=== PATIENT | female | born 1965 | race Caucasian/White ===

== ENCOUNTER → 2021-11-11 07:59 | Outpatient (CLI) | payer OTHER, MEDICAID, SELFPAY ==
--- NOTE | 2021-11-11 08:01 | DI.RAD.S_ITS ---
PROCEDURE: XR FOOT RT MIN 3V INDICATIONS: fall TECHNIQUE: 3 views of the foot were acquired. COMPARISON: [facility], , FOOT 3V RIGHT, 01/08/2016, 10:16. FINDINGS: Bones: No acute fractures or dislocations. No suspicious bony lesions. Moderate to severe hallux valgus with degenerative changes at the 1st metatarsophalangeal joint. Degenerative changes also seen scattered through the interphalangeal joints of the toes. Posterior and plantar calcaneal enthesophytes are present. Soft tissues: Soft tissue edema is seen along the dorsal midfoot. IMPRESSION: 1. No acute osseous abnormality. If clinical suspicion and/or symptoms persist, additional imaging with repeat plain films, or advanced imaging (e.g. CT, MRI) may be helpful for further assessment. 2. Severe hallux valgus and moderate degenerative changes at the 1st metatarsophalangeal joint Dictated by: David Tim M.D. on 11/11/2021 at 8:44 Approved by: David Tim M.D. on 11/11/2021 at 8:46
== END ==
PROVIDERS: Family Provider Internal Medicine; PCP Internal Medicine; Referring Provider Physician Assistant; Visit Provider Physician Assistant
DX: M20.11 Hallux valgus (acquired), right foot (principal); M77.31 Calcaneal spur, right foot; M79.671 Pain in right foot
CPT/HCPCS: 73630

== ENCOUNTER → 2022-05-25 12:46 | Outpatient (CLI) | payer OTHER, MEDICAID, SELFPAY | PROVIDERS: Family Provider Internal Medicine; PCP Internal Medicine; Visit Provider Nurse Practitioner Family | DX: T81.49XA Infection following a procedure, other surgical site, initial encounter (principal) | CPT/HCPCS: 87070; 87077; 87147; 87186; 87205 ==